=== PATIENT | male | born 2000 | race Hispanic/Latino ===

== ENCOUNTER 2023-12-18 13:28 | Emergency (ER) | payer SELFPAY ==
[~2023-12-18] VITALS: Ht 172.7 cm; Wt 64.4 kg
[2023-12-18 13:58] LABS: RAPID GROUP A STREP negative (NEGATIVE)
[2023-12-18 14:03] LABS: SARS-CoV-2, RNA, NAAT NEGATIVE SARS CoV-2 (NEGATIVE)
[2023-12-18 14:09] LABS: INFLUENZA TYPE A Negative For Type A (NEGATIVE); INFLUENZA TYPE B Negative For Type B (NEGATIVE)
[2023-12-18] MEDS ORDERED: IBUP-2077 PO (14:52)
[2023-12-18] MEDS ORDERED: AMOX1TAB16 PO (14:52)
[2023-12-18] MEDS: IBUPROFEN 800 MG TAB PO ONE (14:53)
[2023-12-18 14:58] VITALS: BP 135/65; PULSE 78; RESP 20; TEMP 98.8; O2SAT 98
== END 2023-12-18 15:01 | disposition home or self-care (01) ==
LOC: EDH 13:28
DX: J02.9 Acute pharyngitis, unspecified (principal); M79.18 Myalgia, other site; R51.9 Headache, unspecified; Z20.822 Contact with and (suspected) exposure to COVID-19; Z98.890 Other specified postprocedural states
CPT/HCPCS: 87635; 87804; 87880